=== PATIENT | female | born 1950 | race African-American/Black ===

== ENCOUNTER → 2019-10-16 | Outpatient (CLI) | payer OTHER ==
[~2019-10-16] MED LIST: ALENDRONAT70 MG/75 M PO; ASA81BEC PO; CLOPIDOGREL75 MG PO; HYDROCHLOROTHIA25 M2 PO; KRISTALOSE20 GM PO; LIPITOR40 MG PO; MECLIZINE HCL25 M1 PO; NORCO 10-325 T1 EAC1 PO; NORVASC 2.5 MG2.5 M1 PO; ZANAFLEX4 M2 PO
== END ==
LOC: SJCVC 12:38
PROVIDERS: ATTEND Nuclear Medicine Nuclear Cardiology
DX: I73.9 Peripheral vascular disease, unspecified (principal); I12.9 Hypertensive chronic kidney disease with stage 1 through stage 4 chronic kidney disease, or unspecified chronic kidney disease; N18.9 Chronic kidney disease, unspecified; E78.00 Pure hypercholesterolemia, unspecified; F17.200 Nicotine dependence, unspecified, uncomplicated; Z79.899 Other long term (current) drug therapy

== ENCOUNTER 2019-10-22 10:54 | Outpatient (CLI) | payer OTHER ==
[~2019-10-22] VITALS: Ht 160 cm; Wt 69.9 kg
[2019-10-22] VITALS (7 sets, daily range): BP systolic 119–154; BP diastolic 46–90
[2019-10-22 11:53] LABS: HEMATOCRIT 37.1 % (37.0-47.0); HEMOGLOBIN 12.2 gm/dL (12.0-15.0); MCH 26.2 pg (26.0-34.0); MCHC 32.9 g/dL (28.0-37.0); MCV 79.5 fL (80.0-100.0); RBC 4.67 mil/uL (4.20-5.00); RDW 16.3 % (10.5-14.5); WBC 6.4 thou/uL (4.0-11.0)
[2019-10-22 12:06] LABS: CALCIUM 9.3 mg/dL (8.5-10.1); CREATININE 1.6 mg/dL (0.6-1.0); POTASSIUM 3.7 mmol/L (3.5-5.1)
[2019-10-22] MEDS ORDERED: ALENDRONAT70 MG/75 M PO (12:12)
[2019-10-22] MEDS ORDERED: NORVASC 2.5 MG2.5 M1 PO (12:14)
[2019-10-22] MEDS ORDERED: LIPITOR40 MG PO (12:15)
[2019-10-22] MEDS ORDERED: HYDROCHLOROTHIA25 M2 PO (12:16)
[2019-10-22] MEDS ORDERED: NORCO 10-325 T1 EAC1 PO (12:17)
[2019-10-22] MEDS ORDERED: MECLIZINE HCL25 M1 PO (12:18)
[2019-10-22] MEDS ORDERED: KRISTALOSE20 GM PO (12:18)
[2019-10-22] MEDS ORDERED: ZANAFLEX4 M2 PO (12:19)
--- NOTE | 2019-10-22 20:16 | NUR ---
PT CARE ASSUMED AT 1715. ASSESSMENTS CHARTED. MEDICATION CHARTED. PT NONCOMPLIANT; WILL NOT LAY STILL. PT WILL NOT KEEP ARM STILL DURINING VITALS; OFTEN HAVE TO REPEAT VITALS.
[2019-10-23 00:34] VITALS: BP 116/43
[2019-10-23 05:03] VITALS: BP 124/57
[2019-10-23 05:44] LABS: HEMATOCRIT 34.3 % (37.0-47.0); HEMOGLOBIN 11.6 gm/dL (12.0-15.0); MCHC 33.8 g/dL (28.0-37.0); RBC 4.28 mil/uL (4.20-5.00); RDW 17.1 % (10.5-14.5); WBC 8.8 thou/uL (4.0-11.0)
[2019-10-23 06:00] LABS: CALCIUM 8.7 mg/dL (8.5-10.1); CREATININE 1.6 mg/dL (0.6-1.0); POTASSIUM 4.1 mmol/L (3.5-5.1)
[2019-10-23 07:15] VITALS: BP 136/58
--- NOTE | 2019-10-23 07:17 | NUR ---
PATIENTS CARES WERE ASSUMED AT SHIFT CHANGE. PATIENT WAS ASSESSED AND MEDS WERE PASSED. PATIENT IS VERY FIGITY AND VERY HUNGRY THIS SHIFT. PATIENT WAS LESS THAN KIND TO THE PEDIATRIC SPEECH LANGUAGE PATHOLOGIST ON SEVERAL OCCASIONS. HOURLY ROUNDS WERE DONE. PATIENT LOOKING FORWARD TO GOING HOME TODAY. THE BED IS IN A LOW AND LOCKED POSISION
[2019-10-23] MEDS ORDERED: CLOPIDOGREL75 MG PO (07:22)
[2019-10-23] MEDS ORDERED: ASA81BEC PO (07:22)
[2019-10-23 08:39] VITALS: BP 136/58
[2019-10-23 08:42] VITALS: BP 136/58
== END 2019-10-23 10:31 | disposition home or self-care (01) ==
LOC: CATH 10:54 → TBACV 16:28 → 2N 17:28
PROVIDERS: Nurse Practitioner; ADMIT Nuclear Medicine Nuclear Cardiology; ATTEND Nuclear Medicine Nuclear Cardiology
DX: I70.248 Atherosclerosis of native arteries of left leg with ulceration of other part of lower leg (principal); L97.919 Non-pressure chronic ulcer of unspecified part of right lower leg with unspecified severity; I70.1 Atherosclerosis of renal artery; I12.9 Hypertensive chronic kidney disease with stage 1 through stage 4 chronic kidney disease, or unspecified chronic kidney disease; N18.9 Chronic kidney disease, unspecified; E78.00 Pure hypercholesterolemia, unspecified; I25.10 Atherosclerotic heart disease of native coronary artery without angina pectoris; E78.5 Hyperlipidemia, unspecified; F17.210 Nicotine dependence, cigarettes, uncomplicated; Z88.8 Allergy status to other drugs, medicaments and biological substances; Z79.82 Long term (current) use of aspirin; Z98.890 Other specified postprocedural states; Z79.899 Other long term (current) drug therapy